=== PATIENT | male | born 1975 | race Caucasian/White ===

== ENCOUNTER 2021-02-26 10:01 | Emergency (ER) | payer SELFPAY ==
[~2021-02-26] VITALS: Ht 167.6 cm; Wt 144.0 kg
--- NOTE | 2021-02-26 10:45 | NUR ---
PT AMBULATED TO ROOM FROM TRIAGE. PT CO SEVERE ABDOMINAL CRAMPING. PT AGITATED AND RESTLESS, ROLLING AROUND IN GURNEY YELLING "IT HURTS!" PT STATED PAIN STARTED ABOUT AN HOUR AGO AND VOMITED X1. PT DENIES ANY FEVER, COUGH, SOB, DIARRHEA OR BLOOD IN URINE. PT HAS HISTPORY OF HIV.
[2021-02-26] MEDS ORDERED: ONDANSETRON 2MG/ML, 2ML ONE (10:56)
[2021-02-26] MEDS ORDERED: HYDROmorphone 1 MG/ML, 1ML INJ ONE (10:56)
[2021-02-26] MEDS ORDERED: ONDANSETRON 2MG/ML, 2ML IVPush ONE (11:00)
[2021-02-26] MEDS ORDERED: HYDROmorphone 1 MG/ML, 1ML INJ IV ONE (11:00)
[2021-02-26] MEDS ORDERED: SODIUM CHLORIDE FLUSH 10ML SYR IVF ONE (11:00)
[2021-02-26] MEDS ORDERED: SODIUM CHLORIDE 0.9% 1,000ML IVBOLUS ONE (11:00)
[2021-02-26] MEDS ORDERED: PLEASE ENTER ALLERGIES MC SCH (11:00)
[2021-02-26 11:01] LABS: BASOPHILS % (AUTO) 0 % (0-1); EOSINOPHILS % (AUTO) 0 % (1-7); LYMPHOCYTES % (AUTO) 16 % (22-44); MEAN CORPUSCULAR HEMOGLOBIN 28.3 pg (27.5-34.5); MEAN CORPUSCULAR HGB CONC 33.7 g/dL (33.2-36.2); MEAN PLATELET VOLUME 9.1 fL (7.4-10.4); MONOCYTES % (AUTO) 6 % (2-9); NEUTROPHILS % (AUTO) 78 % (42-75); PLATELET COUNT 159 x10^3/uL (130-400); RED BLOOD COUNT 5.22 x10^6/uL (4.38-5.82)
[2021-02-26 11:12] LABS: ALANINE AMINOTRANSFERASE 48 U/L (12-78); ALBUMIN 3.8 g/dL (3.4-5.0); ANION GAP 7 mmol/L (5-15); CALCIUM 9.3 mg/dL (8.5-10.1); CHLORIDE 107 mmol/L (98-107); CREATININE 0.64 mg/dL (0.7-1.3)
[2021-02-26 11:13] LABS: MD NO
[2021-02-26 11:15] LABS: ALKALINE PHOSPHATASE 109 U/L (45-117); BILIRUBIN,TOTAL 0.4 mg/dL (0.2-1.0); TOTAL PROTEIN 8.8 g/dL (6.4-8.2)
--- NOTE | 2021-02-26 11:24 | NUR ---
PT TO CT
--- NOTE | 2021-02-26 11:42 | NUR ---
PT BACK FROM CT
[2021-02-26] MEDS ORDERED: OMNIPAQUE 350 MG/ML, 100ML BOTTLE ONE (11:49)
[2021-02-26 12:29] LABS: MICROSCOPIC AUTO
[2021-02-26] MEDS ORDERED: CEFTRIAXONE 1,000 MG in DEXTROSE 5% 50 ML IVPB ONE (13:00)
--- NOTE | 2021-02-26 13:00 | NUR ---
PT RESTING IN [place] COMFORTABLY. IV ABX INFUSING.
[2021-02-26 13:50] VITALS: BP 153/78
--- NOTE | 2021-02-26 14:12 | NUR ---
PT TOLERATED ABX WITHOUT ANY REACTION. DISCHARGE INSTRUCTIONS REVIEWED WITH PT. ALL QUESTIONS ANSWERED AT THIS TIME.
== END 2021-02-26 14:15 | disposition home or self-care (01) ==
LOC: ED 13:13
DX: N30.00 Acute cystitis without hematuria (principal); R10.84 Generalized abdominal pain; R11.2 Nausea with vomiting, unspecified; D84.9 Immunodeficiency, unspecified; R59.0 Localized enlarged lymph nodes
CPT/HCPCS: 36415; 74177; 80053; 81001; 83605; 83690; 85025; 87086; 93005; 96361; 96365; 96375; 99285; J0696; J1170; J2405; J7030; Q9967; 87077